=== PATIENT | female | born 1940 | race Caucasian/White ===

== ENCOUNTER 2017-01-20 16:32 | Emergency (ER) | payer OTHER, MEDICARE ==
--- NOTE | 2017-01-20 18:29 | DIAGNOSTIC IMAGING REPORT ---
PROCEDURE: XR CERVICAL SPINE 2 OR 3 VIEW INDICATION: NECK TRAUMA/INJURY TECHNIQUE: Three views. COMPARISON: None. FINDINGS: Normal alignment without fracture. Mild to moderate C5-6 and C6-7 degenerative changes. Straightening of the cervical spine. Soft tissue calcifications posterior to the C5 and C6 spinous processes consistent with old post-traumatic changes. Odontoid, lateral masses of C1 and prevertebral soft tissues are normal. Left carotid calcific atherosclerosis. IMPRESSION: 1. Straightening of the cervical spine suggestive of muscular spasm 2. Mild to moderate degenerative changes 3. Left carotid calcific atherosclerosis.
--- NOTE | 2017-01-20 19:49 | DIAGNOSTIC IMAGING REPORT ---
PROCEDURE: CT HEAD WITHOUT CONTRAST INDICATION: TRAUMA/INJURY TECHNIQUE: Noncontrast axial images with sagittal and coronal reformations. COMPARISON: None. FINDINGS: Right posterior parietal scalp contusion with a subcutaneous punctate foreign body. There is mild cortical atrophy, normal ventricular system and minor white matter chronic ischemic changes. There is a 6 mm right parasagittal anterior falx density. There is no mass effect, midline shift or acute CVA. There is no fracture. Mastoids are clear. Right antral window with subchondral opacification of the right maxillary sinus. IMPRESSION: 1. Right posterior parietal scalp contusion with subcutaneous punctate foreign body 2. Right para sagittal anterior falx density suspicious for a tiny subdural hematoma versus anterior falx calcification. 3. Mild atrophy and minor white matter chronic ischemic changes 4. Right antral window with subtotal opacification of the right maxillary sinus 5. Findings discussed with Dr. Roman at 07:46 p.m., [employer] Standard Time
--- NOTE | 2017-01-20 21:06 | ED CLINICAL REPORT ---
Clinical Report - Physicians/Mid Levels [facility] [address] [place] [address] 01/20/2017 16:34 Patient: EVE VILLAFUERTE Time Seen: 16:50. Arrived- By private vehicle. Historian- patient and family. HISTORY OF PRESENT ILLNESS Chief Complaint: INJURY TO HEAD. Location of injuries- head and neck. The injury occurred just prior to arrival. Occurred at home. ( Ms Villafuerte lost her balance and fell backwards from standing. She felt slightly downhill and hit the back of her head on some rocks. She suffered no loss of consciousness. This happened just prior to arrival. She does not take anticoagulants.). The patient complains of mild pain. The patient sustained a blow to the head and complains of neck pain. No loss of consciousness or seizure. Not dazed. REVIEW OF SYSTEMS No numbness, nausea, chest pain, weakness or loss of vision. No vomiting, difficulty breathing, bladder dysfunction or fever. She sustained skin laceration. PAST HISTORY PROBLEMS: Constipation. Hemorrhoids. Dehydration. Abdominal Pain. Bartholin's Abscess. Depression. Anxiety Reaction. Hypertension. Cancer.- Bilateral Diverticulitis. Diabetes Mellitus. ADDITIONAL SURGERIES: Appendectomy. Bilat knee replacements. Colon resection. Colonoscopy. Hernia Repair. Hysterectomy. Mastectomy. x 2 Tonsillectomy. Last tetanus immunization unknown. ADDITIONAL NOTES The nursing notes have been reviewed. PHYSICAL EXAM Vital Signs: 01/20/2017 21:12 BP: 119/58. HR: 63. RR: 16. O2 saturation: 98%. Temp: 98.8 F. Pain level now: 08/08. 01/20/2017 19:31 BP: 122/54. HR: 68. RR: 16. O2 saturation: 98%. 01/20/2017 16:57 BP: 125/59. HR: 75. RR: 20. O2 saturation: 96%. Temp: 98.2 F. Pain level now: 10. Appearance: Alert. Patient in mild distress. Head: Vertex: abrasion, moderate swelling and 0.5 cm laceration of the posterior aspect of the vertex. No left mandible complaints. Eyes: Pupils equal, round and reactive to light. EOM intact. ENT: No dental injury. Pharynx normal. Neck: Neck non-tender. CVS: Heart sounds normal. Respiratory: Breath sounds normal. Chest nontender. Abdomen: Soft and nontender. No organomegaly. Back: No tenderness. ROM normal. Skin: Skin intact. Skin warm. Extremities: Normal inspection. Pelvis stable. Extremities atraumatic. Neuro: Oriented X 3. Mood/affect normal. Speech normal. No motor deficit. No sensory deficit. LABS, X-RAYS, AND EKG CT Head: (PROCEDURE: CT HEAD WITHOUT CONTRAST INDICATION: TRAUMA/INJURY TECHNIQUE: Noncontrast axial images with sagittal and coronal reformations. COMPARISON: None. FINDINGS: Right posterior parietal scalp contusion with a subcutaneous punctate foreign body. There is mild cortical atrophy, normal ventricular system and minor white matter chronic ischemic changes. There is a 6 mm right parasagittal anterior falx density. There is no mass effect, midline shift or acute CVA. There is no fracture. Mastoids are clear. Right antral window with subchondral opacification of the right maxillary sinus. IMPRESSION: 1. Right posterior parietal scalp contusion with subcutaneous punctate foreign body 2. Right para sagittal anterior falx density suspicious for a tiny subdural hematoma versus anterior falx calcification. 3. Mild atrophy and minor white matter chronic ischemic changes 4. Right antral window with subtotal opacification of the right maxillary sinus 5. Findings discussed with Dr. Roman at 07:46 p.m., [place] Standard Time Electronically Final signed by:Haris Espinosa MD 01/20/2017 7:49:33 PM Technologist: JON). The study was interpreted by the radiologist and discussed with the radiologist. PROGRESS AND PROCEDURES Laceration Repair: Location: scalp. Wound depth/shape- subcutaneous and irregular. Wound is clean. Distal neuro/vascular/tendon status normal. Local anesthesia provided using 1% lidocaine with epi and bicarb. Wound explored. The known minute scalp FB cannot be fond. Closure of superficial layer: (left open). Post-procedure: there are no complications. Tetanus immunization given. Course of Care: Mrs. Villafuerte has a minute piece of foreign material in the scalp. The scalp wound was carefully irrigated but no foreign body could be seen. She understands that at some later time a small abscess may form that immediately extruded or it maybe retained for the rest of her life without problems. Mrs. Villafuerte has a small radiodense area on the falx which I believe is almost certainly calcification rather than bleeding because of theexcellent neurologic examination. I did decide to ask the patient to return in [address] in case the radiodense area would be fun to BX expandingit could be appropriately dealt with. The patient is currently alert and oriented and quite appropriate her also do every two-hour mental status exam checks and she'll be seen in 12 hours in the ED for a repeat CT scan. CLINICAL IMPRESSION Single laceration to the scalp. Contusion to the scalp. INSTRUCTIONS (RETURN FOR REPEAT CT OF HEAD IN 12 HOURS TO MAKE SURE THAT THE RADIODENSITY ON THE FALX IS NOT A WORSENING BLEED. EVERY 2 HOUR MENTAL STATUS CHECKS. IMMEDIATE RECHECK IF LESS ALERT YOU HAVE A SMALL PIECE OF FOREIGN MATERIAL IN THE SCALP. I WAS NOT ABLE TO REMOVE IT. WE TALKED ABOUT THE LIKELY OUTCOMES.). Prescription Medications: Hydrocodone/APAP 5mg / 325mg: take 1-2 orally every 4 hours as needed for pain. Dispense fifteen (15). No refill. Follow-up: Follow up with your doctor in six days. Call for an appointment. Understanding of the discharge instructions verbalized by patient and family. (Electronically signed by Roney Roman MD 01/20/2017 23:46)
--- NOTE | 2017-01-20 21:06 | ED ORDER SUMMARY ---
..... 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 (21:21 01/20/2017)] [Electronically signed by Roney Roman MD (23:46 01/20/2017)] [Electronically locked/signed by Salvatore Stone R.N. (21:21 01/20/2017)]
--- NOTE | 2017-01-20 21:06 | ED ORDER SUMMARY ---
..... 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 (21:21 01/20/2017)] [Electronically signed by Roney Roman MD (23:46 01/20/2017)] [Electronically locked/signed by Salvatore Stone R.N. (21:21 01/20/2017)]
--- NOTE | 2017-01-20 21:06 | ED NURSING NOTES ---
Clinical Report - Nurses [facility] [address] [place] [address] 01/20/2017 16:34 Patient: EVE VILLAFUERTE TRIAGE Triage time 16:54. Acuity: LEVEL 4. Chief Complaint: FALL (Just STRANNER she fell off of a 5 gallon bucket onto the dirt/grass and hit her head on a rock, right posterior head lac. Denies LOC. She states that she just lost her balance due to bilat knee replacements and neuropathy.). SEPSIS SCREEN: Sepsis Screen. Negative (no infection suspected/documented). ABDI COMA SCORE: Abdi Coma Scale: 15- eyes open spontaneously (4); best verbal response- oriented x 4 (5); best motor response- obeys commands (6). --17:09 Tio Cisneros R.N. 16:57 01/20/17. BP: 125/59 (large adult cuff) taken on the left arm, while sitting. HR: 75. RR: 20. O2 saturation: 96% on room air. Temp: 98.2 F (oral). Pain level now: 05/08. --17:09 Tio Cisneros R.N. Weight: 97.5 kg stated. Height/Length: 65 inches Per Patient. BMI: 35.8. --17:06 Tio Cisneros R.N. Medications Atenolol Oral 50 mg, daily. HCTZ 25 mg, daily. --17:04 Tio Cisneros R.N. Amitriptyline HCl Oral. --17:04 Tio Cisneros R.N. ALPRAZolam Oral. --17:04 Tio Cisneros R.N. Colchicine Oral. --17:05 Tio Cisneros R.N. Aspirin Oral (Tablet 81 mg) 1 tablet, daily. --17:05 Tio Cisneros R.N. Allergies No Known Drug Allergy. --17:05 Tio Cisneros R.N. Tape. (Paper tape is ok) --17:05 Simbeck, Tio, R.N. Tegaderm. --17:08 Tio Cisneros R.N. History Arrived by private vehicle. Historian: patient. Accompanied by family. This occurred just prior to arrival. She has had moderate mid back pain. She has had trouble walking. (baseline). No loss of consciousness. No dizziness or neck pain. Trauma activation: Pre-hospital notification of patient arrival was not received. SOCIAL HX: Never smoker. Occasional alcohol use. No drug use. ABUSE ASSESSMENT: No report of abuse. --17:09 Tio Cisneros R.N. PROBLEMS: Constipation. Hemorrhoids. Dehydration. Abdominal Pain. Bartholin's Abscess. Depression. Anxiety Reaction. Hypertension. Cancer. Diverticulitis. --17:01 Tio Cisneros R.N. Diabetes Mellitus. --17:08 Tio Cisneros R.N. ADDITIONAL SURGERIES: Appendectomy. Bilat knee replacements. Colon resection. Colonoscopy. Hernia Repair. Hysterectomy. Mastectomy. Tonsillectomy. --17:01 Tio Cisneros R.N. Interventions ID band on patient. To treatment room. --17:09 Tio Cisneros R.N. PHYSICAL ASSESSMENT 17:13 01/20/17. To room via wheelchair. GENERAL / NEURO / PSYCH: Alert. Oriented X 4. Appears in pain. HEENT: Pupils equal, round and reactive to light. Right parietal area: subcutaneous 1.0 cm laceration with controlled bleeding. Head non-tender. EXTREMITIES: Extremities do not exhibit normal ROM. Limited ROM present in the right knee and left knee (chronic). Neuro-vascular status intact to the extremity. SKIN: Skin is warm and dry. Skin not intact. --17:15 Tio Cisneros R.N. NURSING PROGRESS NOTES Reassurance given. Two patient identifiers checked. Call light placed in reach. Side rails up x 1. Bed placed in lowest position. Brakes of bed on. Patient ready for evaluation- chart flagged. ( at the bedside). --17:15 Tio Cisneros R.N. 17:52 01/20/2017 Hydrocodone-APAP (Hydrocodone-Acetaminophen) PO 5/325 mg Tablets 2 tab given. Allergies verified, confirmed 5 rights and sedative warning given to the patient. --17:54 Tio Cisneros R.N. 17:52 01/20/2017 Zofran ODT (Ondansetron) PO Oral Disintegrating Tablets 4 mg given. Allergies verified and confirmed 5 rights. --17:54 Tio Cisneros R.N. 17:53 01/20/2017 TDAP IM 0.5 mL given. 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 Given in the right deltoid. Allergies verified and confirmed 5 rights. --17:55 Tio Cisneros R.N. Reassessment after medication administered. She is calm and resting quietly. Overall patient status is improved. GENERAL / NEURO / PSYCH: The patient reports pain that is located in the mid back. Alert. Oriented X 4. RESPIRATORY: No respiratory distress. CVS: Capillary refill less than 2 seconds. --19:33 Salvatore Stone R.N. 19:31 01/20/17. BP: 122/54. HR: 68. RR: 16. O2 saturation: 98%. --19:33 Salvatore Stone R.N. The patient is calm and resting quietly. Overall patient status is improved- she states feels better. ( Patient is waiting for CT scan result.). GENERAL / NEURO / PSYCH: The patient reports pain that is located in the mid back is still present and currently mild in severity. Alert. Oriented X 4. RESPIRATORY: No respiratory distress. CVS: Capillary refill less than 2 seconds. EXTREMITIES: Neuro-vascular status intact to the extremity. --20:47 Salvatore Stone R.N. DISPOSITION / DISCHARGE Condition at departure: improved. ( Denies headache or dizziness. Mid to low back pain still present but patient states it is a bit better.). No learning barriers present. Discharge instructions provided and reviewed with the patient. Reviewed medication(s) side effects, precautions, dosing and course information. Prescription(s) given to the patient. Reviewed referral to a primary care physician for followup. Patient verbalized understanding. Written instructions provided in [place]. The patient was discharged home and accompanied by spouse. She left the Emergency Department ambulatory and via private vehicle. Spouse driving. --21:21 Salvatore Stone R.N. 21:12 01/20/17. BP: 119/58. HR: 63. RR: 16. O2 saturation: 98%. Temp: 98.8 F (oral). Pain level now: 08/08. --21:21 Salvatore Stone R.N. Departure time: :. --21:21 Salvatore Stone R.N. Locked/Released at 01/20/2017 21:21 by Salvatore Stone R.N.
--- NOTE | 2017-01-20 23:46 | ED MAR SUMMARY ---
..... Medication Administration Record [facility] [address] [place] [address] Patient: EVE VILLAFUERTE Visit ID: [id number] 76y, F Weight: 97.5 kg Height/Length: 65 in BMI: 35.8 ALLERGIES: Tape, No Known Drug Allergy, Tegaderm Given 17:52 01/20/2017 Tio Cisneros R.N. Medication Administered: HYDROCODONE-APAP [PO] (HYDROCODONE-ACETAMINOPHEN), Dose: 2 tab 5/325 mg Tablets PO. Medication Ordered: Hydrocodone-APAP PO 5/325 mg 2 tabs (NOW). Given 17:52 01/20/2017 Tio Cisneros R.N. Medication Administered: ZOFRAN ODT [PO] (ONDANSETRON), Dose: 4 mg Oral Disintegrating Tablets PO. Medication Ordered: Zofran ODT PO 4 mg (NOW). Given 17:53 01/20/2017 Tio Cisneros R.N. Medication Administered: TDAP [IM], Dose: 0.5 mL IM. Medication Ordered: Tdap IM 0.5 mL (NOW).
--- NOTE | 2017-01-20 23:46 | ED MED RECONCILIATION SUMMARY ---
Patient: EVE VILLAFUERTE Medication Reconciliation Report [facility] VisitID: [id number] [place] [address] 76y, F Registration Date/Time: 01/20/2017 Weight: 97.5 kg Height/Length: 65 in. BMI: 35.8 ALLERGIES: No Known Drug Allergy, Tape, Tegaderm The patient's Home Medications are listed below: THE FOLLOWING MEDICATIONS NEED TO BE RECONCILED: ALPRAZolam Oral Amitriptyline HCl Oral Aspirin Oral (81 mg) 1 tablet, daily Atenolol Oral 50 mg, daily Colchicine Oral HCTZ 25 mg, daily The source(s) of the original Home Medication information: Not obtained. The following Medications were given to the patient in the Emergency Department: Hydrocodone-APAP [PO] PO 2 tab, administered: 01/20/2017 5:52:00 PM Zofran ODT [PO] PO 4 mg, administered: 01/20/2017 5:52:00 PM TDAP [IM] IM 0.5 mL, administered: 01/20/2017 5:53:00 PM The following Medications were prescribed to the patient: Hydrocodone/APAP 5mg / 325mg: take 1-2 orally every 4 hours as needed for pain. Dispense fifteen (15). No refill. -- Roney Roman MD
--- NOTE | 2017-01-20 23:46 | ED MED RECONCILIATION SUMMARY ---
Patient: EVE VILLAFUERTE Medication Reconciliation Report [facility] VisitID: [id number] [place] [address] 76y, F Registration Date/Time: 01/20/2017 Weight: 97.5 kg Height/Length: 65 in. BMI: 35.8 ALLERGIES: No Known Drug Allergy, Tape, Tegaderm The patient's Home Medications are listed below: THE FOLLOWING MEDICATIONS NEED TO BE RECONCILED: ALPRAZolam Oral Amitriptyline HCl Oral Aspirin Oral (81 mg) 1 tablet, daily Atenolol Oral 50 mg, daily Colchicine Oral HCTZ 25 mg, daily The source(s) of the original Home Medication information: Not obtained. The following Medications were given to the patient in the Emergency Department: Hydrocodone-APAP [PO] PO 2 tab, administered: 01/20/2017 5:52:00 PM Zofran ODT [PO] PO 4 mg, administered: 01/20/2017 5:52:00 PM TDAP [IM] IM 0.5 mL, administered: 01/20/2017 5:53:00 PM The following Medications were prescribed to the patient: Hydrocodone/APAP 5mg / 325mg: take 1-2 orally every 4 hours as needed for pain. Dispense fifteen (15). No refill. -- Roney Roman MD
--- NOTE | 2017-01-20 23:46 | ED MAR SUMMARY ---
..... Medication Administration Record [facility] [address] [place] [address] Patient: EVE VILLAFUERTE Visit ID: [id number] 76y, F Weight: 97.5 kg Height/Length: 65 in BMI: 35.8 ALLERGIES: Tape, No Known Drug Allergy, Tegaderm Given 17:52 01/20/2017 Tio Cisneros R.N. Medication Administered: HYDROCODONE-APAP [PO] (HYDROCODONE-ACETAMINOPHEN), Dose: 2 tab 5/325 mg Tablets PO. Medication Ordered: Hydrocodone-APAP PO 5/325 mg 2 tabs (NOW). Given 17:52 01/20/2017 Tio Cisneros R.N. Medication Administered: ZOFRAN ODT [PO] (ONDANSETRON), Dose: 4 mg Oral Disintegrating Tablets PO. Medication Ordered: Zofran ODT PO 4 mg (NOW). Given 17:53 01/20/2017 Tio Cisneros R.N. Medication Administered: TDAP [IM], Dose: 0.5 mL IM. Medication Ordered: Tdap IM 0.5 mL (NOW).
--- NOTE | 2017-01-20 23:46 | ED DISCHARGE INSTRUCTIONS ---
Patient: EVE VILLAFUERTE General Instructions [facility] VisitID: [id number] [place] [address] 76y, F Registration Date/Time: 01/20/2017 Single laceration to the scalp. Contusion to the scalp. INSTRUCTIONS (RETURN FOR REPEAT CT OF HEAD IN 12 HOURS TO MAKE SURE THAT THE RADIODENSITY ON THE FALX IS NOT A WORSENING BLEED. EVERY 2 HOUR MENTAL STATUS CHECKS. IMMEDIATE RECHECK IF LESS ALERT YOU HAVE A SMALL PIECE OF FOREIGN MATERIAL IN THE SCALP. I WAS NOT ABLE TO REMOVE IT. WE TALKED ABOUT THE LIKELY OUTCOMES.). Prescription Medications: Hydrocodone/APAP 5mg / 325mg: take 1-2 orally every 4 hours as needed for pain. Dispense fifteen (15). No refill. Follow-up: Follow up with your doctor in six days. Call for an appointment. Understanding of the discharge instructions verbalized by patient and family. ADDITIONAL INFORMATION Laceration (All Closures) Alaceration is a cut through the skin. This will usually require stitches (sutures) or shawanda if it is deep. Minor cuts may be treated with a surgical tape closure orskin glue. Home care The following guidelines will help you care for your laceration at home: Extremity, face, or trunk wounds Keep the wound clean and dry. If a bandage was applied and it becomes wet or dirty, replace it. Otherwise, leave it in place for the first 24 hours. If stitches or shawanda were used, clean the wound daily. After removing the bandage, wash the area with soap and water. Use a wet cotton swab to loosen and remove any blood or crust that forms. The doctor may prescribe an antibiotic cream or ointment to prevent infection. Do not stop taking this medication until you have finished the prescribed course or the doctor tells you to stop. The doctor may also prescribe medications for pain. Follow the doctors instructions for taking these medications. You may remove the bandage to shower as usual after the first 24 hours, but do not soak the area in water (no swimming) until the stitches or shawanda are removed. If surgical tape was used, keep the area clean and dry. If it becomes wet, blot it dry with a towel. If skin glue was used, do not scratch, rub, or pick at the adhesive film. Do not place tape directly over the film. Do not apply liquid, ointment, or creams to the wound while the film is in place. Do not clean the wound with peroxide and do not apply ointments. Avoid activities that cause heavy sweating until the film has fallen off. Protect the wound from prolonged exposure to sunlight or tanning lamps. You may shower as usual but do not soak the wound in water (no baths or swimming). The film will fall off by itself in 510 days. Scalp wounds During the first two days, you may carefully rinse your hair in the shower to remove blood, glass or dirt particles. After two days, you may shower and shampoo your hair normally. Do not soak your scalp in the tub or go swimming until the stitches or shawanda have been removed. Talk with your doctor before applying any antibiotic ointment to the wound. Mouth wounds Eat soft foods to reduce pain. If the cut is inside of your mouth, clean by rinsing after each meal and at bedtime with a mixture of equal parts water and hydrogen peroxide (do not swallow!). Or, you can use a cotton swab to directly apply hydrogen peroxide onto the cut. Mouth wounds can be painful when eating. You may use an [id number] local numbing solution for pain relief. If this is not available, you may use any numbing solution for teething babies. You may apply this directly to the sores with a cotton-tip swab or with your finger. Follow-up care Follow up with your health care provider. Most skin wounds heal within ten days. Mouth and facial wounds heal within five days. However, even with proper treatment, a wound infection may sometimes occur. Therefore, you should check the wound daily for signs of infection listed below. Stitches should be removed from the face within five days; stitches and shawanda should be removed from other parts of the body within 714 days. If dissolving stitches were used in the mouth, these will fall out or dissolve without the need for removal. If tape closures were used, remove them yourself if they have not fallen off after 7 days. Ifskin glue was used, the film will fall off by itself in 510 days. When to seek medical care Get prompt medical attention if any of these occur: Bleeding not controlled by direct pressure Signs of infection, including increasing pain in the wound, increasing wound redness or swelling, or pus coming from the wound Fever of 100.4F (38C) or higher, or as directed by your health care provider Stitches or shawanda come apart or fall out or surgical tape falls off before 7 days Wound edges re-open Scalp Contusion [W/ Wake-Up] A scalp contusion is a bruise with swelling. Sometimes there is bleeding under the skin. The swelling should start to go down within two days. Although there is no sign of a serious injury at this time, symptoms may show up later. These could be a sign of a more serious problem (bruising or bleeding in the brain). Home Care: During the next 24 hours someone must stay with you. This person should WAKE YOU EVERY TWO HOURS to check for the signs below. If you have swelling of the face or scalp, apply an ice pack (ice cubes in a plastic bag, wrapped in a towel). Do this for 20 minutes every 1-2 hours until the swelling starts to go down. You may use acetaminophen (Tylenol) or ibuprofen (Motrin, Advil) to control pain, unless another pain medicine was prescribed. [ NOTE : If you have chronic liver or kidney disease or ever had a stomach ulcer or GI bleeding, talk with your doctor before using these medicines.] For the next 24 hours: Do not take alcohol, sedatives or medicines that make you sleepy. Do not drive or operate machinery. Avoid strenuous activities. No lifting or straining. If you have had any symptoms of a concussion today (nausea, vomiting, dizziness, confusion, headache, memory loss or if you were knocked out), do not return to sports or any activity that could result in another head injury until all symptoms are gone and you have been cleared by your doctor. A second head injury before fully recovering from the first one can lead to serious brain injury. Follow Up with your doctor if symptoms are not improving after 24 hours, or as directed. [NOTE: Any X-rays or CT scans taken will be reviewed by a radiologist. You will be notified of any new findings that may affect your care.] Get Prompt Medical Attention if any of the following occur: Repeated vomiting Severe or worsening headache or dizziness Unusual drowsiness, or unable to awaken as usual Confusion or change in behavior or speech, memory loss, blurred vision Convulsion (seizure) Increasing scalp or face swelling Redness, warmth or pus from the swollen area Fluid drainage or bleeding from the nose or ears Fever of 100.4F(38C) or higher, or as directed by your healthcare provider Hydrocodone Bitartrate, Acetaminophen Oral tablet What is this medicine? ACETAMINOPHEN; HYDROCODONE (a set a LUIS emil fen; maribel droe KOE done) is a pain reliever. It is used to treat mild to moderate pain. How should I use this medicine? Take this medicine by mouth. Swallow it with a full glass of water. Follow the directions on the prescription label. If the medicine upsets your stomach, take the medicine with food or milk. Do not take more than you are told to take. Talk to your parole director regarding the use of this medicine in children. This medicine is not approved for use in children. What side effects may I notice from receiving this medicine? Side effects that you should report to your doctor or health health care administrator as soon as possible: allergic reactions like skin rash, itching or hives, swelling of the face, lips, or tongue breathing problems confusion feeling faint or lightheaded, falls stomach pain yellowing of the eyes or skin Side effects that usually do not require medical attention (report to your doctor or health health care administrator if they continue or are bothersome): nausea, vomiting stomach upset What may interact with this medicine? alcohol antihistamines isoniazid medicines for depression, anxiety, or psychotic disturbances medicines for sleep muscle relaxants naltrexone narcotic medicines (opiates) for pain phenobarbital ritonavir tramadol What if I miss a dose? If you miss a dose, take it as soon as you can. If it is almost time for your next dose, take only that dose. Do not take double or extra doses. Where should I keep my medicine? Keep out of the reach of children. This medicine can be abused. Keep your medicine in a safe place to protect it from theft. Do not share this medicine with anyone. Selling or giving away this medicine is dangerous and against the law. Store at room temperature between 15 and 30 degrees C (59 and 86 degrees F). Protect from light. Keep container tightly closed. Throw away any unused medicine after the expiration date. Discard unused medicine and used packaging carefully. Pets and children can be harmed if they find used or lost packages. What should I tell my health care provider before I take this medicine? They need to know if you have any of these conditions: brain tumor Crohn's disease, inflammatory bowel disease, or ulcerative colitis drink more than 3 alcohol-containing drinks per day drug abuse or addiction head injury heart or circulation problems kidney disease or problems going to the bathroom liver disease lung disease, asthma, or breathing problems an unusual or allergic reaction to acetaminophen, hydrocodone, other opioid analgesics, other medicines, foods, dyes, or preservatives or trying to get breast-feeding What should I watch for while using this medicine? Tell your doctor or health health care administrator if your pain does not go away, if it gets worse, or if you have new or a different type of pain. You may develop tolerance to the medicine. Tolerance means that you will need a higher dose of the medicine for pain relief. Tolerance is normal and is expected if you take the medicine for a long time. Do not suddenly stop taking your medicine because you may develop a severe reaction. Your body becomes used to the medicine. This does NOT mean you are addicted. Addiction is a behavior related to getting and using a drug for a non-medical reason. If you have pain, you have a medical reason to take pain medicine. Your doctor will tell you how much medicine to take. If your doctor wants you to stop the medicine, the dose will be slowly lowered over time to avoid any side effects. You may get drowsy or dizzy when you first start taking the medicine or change doses. Do not drive, use machinery, or do anything that may be dangerous until you know how the medicine affects you. Stand or sit up slowly. There are different types of narcotic medicines (opiates) for pain. If you take more than one type at the same time, you may have more side effects. Give your health care provider a list of all medicines you use. Your doctor will tell you how much medicine to take. Do not take more medicine than directed. Call emergency for help if you have problems breathing. The medicine will cause constipation. Try to have a bowel movement at least every 2 to 3 days. If you do not have a bowel movement for 3 days, call your doctor or health health care administrator. Too much acetaminophen can be very dangerous. Do not take Tylenol (acetaminophen) or medicines that contain acetaminophen with this medicine. Many non-prescription medicines contain acetaminophen. Always read the labels carefully. You have been given the following additional information: Laceration, All Scalp Contusion With Wake Up Hydrocodone Bitartrate, Acetaminophen Oral tablet (Electronically signed by Roney Roman MD 01/20/2017 23:46)
== END 2017-01-20 21:21 | disposition home or self-care (01) ==
LOC: ED SRH 16:32
DX: S01.01XA Laceration without foreign body of scalp, initial encounter (principal); W01.118A Fall on same level from slipping, tripping and stumbling with subsequent striking against other sharp object, initial encounter; Y93.9 Activity, unspecified; Y99.9 Unspecified external cause status; Y92.007 Garden or yard of unspecified non-institutional (private) residence as the place of occurrence of the external cause; E11.9 Type 2 diabetes mellitus without complications; I10 Essential (primary) hypertension; Z96.653 Presence of artificial knee joint, bilateral; Z23 Encounter for immunization

== ENCOUNTER 2017-01-21 09:55 | Emergency (ER) | payer OTHER ==
--- NOTE | 2017-01-21 12:43 | DIAGNOSTIC IMAGING REPORT ---
PROCEDURE: CT HEAD WITHOUT CONTRAST INDICATION: TRAUMA/INJURY TECHNIQUE: Axial CT images were acquired through the head. Coronal and sagittal reformations were created. COMPARISON: None. FINDINGS: Mild interval decrease in right posterior parietal contusion and removal of foreign body. Stable appearance to right frontal parafalcine hyperdensity measuring 6 x 8 x 5 mm. No new acute hemorrhage, mass or mass effect. Normal monaco-white matter differentiation, ventricular system, and basal cisterns. Mild cerebral cortical atrophy. Partial opacification of the right maxillary sinus. The other sinuses are aerated. No fractures. IMPRESSION: 1. Decreased right posterior parietal soft tissue injury. 2. Stable hyperdensity along the right anterior falx. 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 Stabilized tiny subdural hematoma is possible. 3. No evidence of new hemorrhage. 4. Discussed with Dr. Gonzales at [address] scans at this facility use dose modulation, iterative reconstruction, and/or weight-based dosing when appropriate to reduce radiation dose to as low as reasonably achievable.
--- NOTE | 2017-01-21 12:43 | DIAGNOSTIC IMAGING REPORT ---
PROCEDURE: CT HEAD WITHOUT CONTRAST INDICATION: TRAUMA/INJURY TECHNIQUE: Axial CT images were acquired through the head. Coronal and sagittal reformations were created. COMPARISON: None. FINDINGS: Mild interval decrease in right posterior parietal contusion and removal of foreign body. Stable appearance to right frontal parafalcine hyperdensity measuring 6 x 8 x 5 mm. No new acute hemorrhage, mass or mass effect. Normal monaco-white matter differentiation, ventricular system, and basal cisterns. Mild cerebral cortical atrophy. Partial opacification of the right maxillary sinus. The other sinuses are aerated. No fractures. IMPRESSION: 1. Decreased right posterior parietal soft tissue injury. 2. Stable hyperdensity along the right anterior falx. 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 Stabilized tiny subdural hematoma is possible. 3. No evidence of new hemorrhage. 4. Discussed with Dr. Gonzales at [address] scans at this facility use dose modulation, iterative reconstruction, and/or weight-based dosing when appropriate to reduce radiation dose to as low as reasonably achievable.
--- NOTE | 2017-01-21 13:16 | ED CLINICAL REPORT ---
Clinical Report - Physicians/Mid Levels [facility] [address] [place] [address] 01/21/2017 9:56 Patient: EVE VILLAFUERTE Time Seen: 1040. Arrived- By private vehicle. Historian- patient. HISTORY OF PRESENT ILLNESS Chief Complaint: INJURY TO HEAD. Location of injuries- (head). The injury occurred yesterday. Occurred at home. Fell. The patient complains of mild pain. The patient sustained a blow to the head. No neck pain, loss of consciousness or seizure. Not dazed. REVIEW OF SYSTEMS All systems otherwise negative, except as recorded above. PAST HISTORY See nurses notes. Tetanus immunization status is up-to-date. Medications: ALPRAZolam Oral. Amitriptyline HCl Oral. Aspirin Oral (Tablet 81 mg) 1 tablet, daily. Atenolol Oral 50 mg, daily. Colchicine Oral. HCTZ 25 mg, daily. Allergies: No Known Drug Allergy. Tape. (Paper tape is ok) Tegaderm. PHYSICAL EXAM Appearance: Alert. No acute distress. Head: No Lambert's sign or raccoon eyes. Eyes: Pupils equal, round and reactive to light. Pupillary exam: Right pupil 3mm, round and reactive to light directly and consensually and with accommodation. Left pupil: 3mm, round and reactive to light directly and consensually and with accommodation. EOM intact. ENT: No dental injury. No hemotympanum. Pharynx normal. Neck: No decreased ROM or muscle spasm in the neck. No pain with movement of head/neck. Painless ROM. Neck non-tender. No vertebral tenderness. CVS: Heart sounds normal. Pulses normal. Respiratory: Breath sounds normal. Chest nontender. Abdomen: Soft and nontender. No organomegaly. Back: No tenderness. ROM normal. Skin: Skin intact. Skin warm and dry. Normal skin color. Normal skin turgor. Extremities: Normal inspection. Pelvis stable. Extremities atraumatic. Neuro: Abdi Coma Scale: 15- eyes open spontaneously (4); best verbal response- oriented x 3 (5); best motor response- obeys commands (6). Oriented X 3. Mood/affect normal. Speech normal. No motor deficit. No sensory deficit. LABS, X-RAYS, AND EKG CT Head: (PROCEDURE: CT HEAD WITHOUT CONTRAST INDICATION: TRAUMA/INJURY TECHNIQUE: Axial CT images were acquired through the head. Coronal and sagittal reformations were created. COMPARISON: None. FINDINGS: Mild interval decrease in right posterior parietal contusion and removal of foreign body. Stable appearance to right frontal parafalcine hyperdensity measuring 6 x 8 x 5 mm. No new acute hemorrhage, mass or mass effect. Normal monaco-white matter differentiation, ventricular system, and basal cisterns. Mild cerebral cortical atrophy. Partial opacification of the right maxillary sinus. The other sinuses are aerated. No fractures. IMPRESSION: 1. Decreased right posterior parietal soft tissue injury. 2. Stable hyperdensity along the right anterior falx. 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 Stabilized tiny subdural hematoma is possible. 3. No evidence of new hemorrhage.). PROGRESS AND PROCEDURES Course of Care: the patient is a 76-year-old female presenting for evaluation for head injury. Patient was told to return to the emergency department for possible head bleed found on her CT scan yesterday. Patient states he she's been doing well since then. Patient has no new problems with memory or with any functioning. patient reports that her pain is well-controlled at this time and does not want anything for it. Patient's CT scan was pending and during that time requested pain medication. Pain medication as been provided. The patient's workup was remarkable for the findings above. Because the patient is stable appearance of her lesion, do not feel patient needs be admitted to the hospital require further emergency department workup/evaluation. Had a discussion with the patient in regards to the possibilities of the abnormality found on her CT scan. Return precautions in regards to possible subdural bleed was provided as well as explanation of her workup here in the emergency Department impossibilities from her CT scan. Also discussed the patient general return precautions as well as follow-up, home care, and diagnosis. All questions have been answered. The patient expressed understanding of these instructions and was agreeable to them. Because of the patient's overall normal neurological examination and stable imaging at this time, do not feel patient needs be admitted.6. CLINICAL IMPRESSION 01/21/2017 10:03 BP: 126/49. HR: 73. RR: 18. O2 saturation: 96%. Temp: 97.3 F. Blood pressure normal. Oxygen saturation normal. Closed head injury. (subsequent encounter). INSTRUCTIONS Warnings: GENERAL WARNINGS: Return or contact your physician immediately if your condition worsens or changes unexpectedly, if not improving as expected, or if other problems arise. Specifically return if pain, vomiting, bleeding, breathing difficulty or fever. Your Current Medications: CONTINUE TAKING THE FOLLOWING MEDICATIONS: ALPRAZolam Oral. Amitriptyline HCl Oral. Aspirin Oral : Tablet 81 mg, 1 tablet daily. Atenolol Oral : 50 mg daily. Colchicine Oral. HCTZ* : 25 mg daily. Follow-up: Return to the emergency department as needed. Follow up with your doctor in three days. Reason for referral: recheck today's concerns. Summary of care provided to patient via paper. Screening today revealed the patient's blood pressure to be in the normal range. The patient should follow up with a primary care provider for blood pressure management. Understanding of the discharge instructions verbalized by patient. (Electronically signed by Jeff Gonzales Dr. 01/21/2017 13:40)
--- NOTE | 2017-01-21 13:16 | ED ORDER SUMMARY ---
..... Patient: EVE VILLAFUERTE OrderSheet Located Within [facility] VisitID: [id number] [place] [address] 76y, F Registration Date/Time: 01/21/2017 ORDER SHEET Weight: 97.5 kg (stated) Allergies: No Known Drug Allergy, Tape, Tegaderm GENERAL ORDERS: CT Head wo Cont Urgent (10:40 01/21/2017 Brandin Kauffman) (Ack 10:42 Nabila) (13:32 LSjasonivan R.N.) MEDICATION ORDERS: Hydrocodone-APAP PO 10/650 mg (NOW, HIGH ALERT MEDICATION) (12:15 01/21/2017 Brandin Kauffman) (12:17 LWhalen R.N.) IV FLUIDS: ORDER SHEET NOTES: [Electronically signed by Chiquita Tabor R.N. (13:34 01/21/2017)] [Electronically signed by Jeff Gonzales Dr. (13:40 01/21/2017)] [Electronically locked/signed by Chiquita Tabor R.N. (13:34 01/21/2017)]
--- NOTE | 2017-01-21 13:16 | ED ORDER SUMMARY ---
..... Patient: EVE VILLAFUERTE OrderSheet VisitID: [id number] [place] [address] 76y, F Registration Date/Time: 01/21/2017 ORDER SHEET Weight: 97.5 kg (stated) Allergies: No Known Drug Allergy, Tape, Tegaderm GENERAL ORDERS: CT Head wo Cont Urgent (10:40 01/21/2017 Brandin Kauffman) (Ack 10:42 Nabila) (13:32 LSjasonivan R.N.) MEDICATION ORDERS: Hydrocodone-APAP PO 10/650 mg (NOW, HIGH ALERT MEDICATION) (12:15 01/21/2017 Brandin Kauffman) (12:17 LWhalen R.N.) IV FLUIDS: ORDER SHEET NOTES: [Electronically signed by Chiquita Tabor R.N. (13:34 01/21/2017)] [Electronically signed by Jeff Gonzales Dr. (13:40 01/21/2017)] [Electronically locked/signed by Chiquita Tabor R.N. (13:34 01/21/2017)]
--- NOTE | 2017-01-21 13:16 | ED NURSING NOTES ---
Clinical Report - Nurses [facility] [address] [place] [address] 01/21/2017 9:56 Patient: EVE VILLAFUERTE TRIAGE Triage time 10:Jan 21 2017. Acuity: LEVEL 3. Chief Complaint: RECHECK OF ILLNESS STATUS. OLIVE COMA SCORE: [place] Coma Scale: 15- eyes open spontaneously (4); best verbal response- oriented x 4 (5); best motor response- obeys commands (6). --10:07 Harinder Benites R.N. 10:03 01/21/17. BP: 126/49. HR: 73. RR: 18. O2 saturation: 96%. Temp: 97.3 F. Pain level now 01/06. --10:07 Harinder Benites R.N. Weight: 97.5 kg stated. Height/Length: 65 inches Per Patient. BMI: 35.8. --10:05 Harinder Benites R.N. Medications ALPRAZolam Oral. Amitriptyline HCl Oral. Aspirin Oral (Tablet 81 mg) 1 tablet, daily. Atenolol Oral 50 mg, daily. Colchicine Oral. HCTZ 25 mg, daily. --10:05 Harinder Benites R.N. Allergies No Known Drug Allergy. Tape. (Paper tape is ok) Tegaderm. --10:05 Harinder Benites R.N. History Arrived by private vehicle. Historian: patient. Accompanied by family. Location: (back of her head). She has experienced pain. Previous treatment: Previously seen in this ED yesterday. ( Needs a repeat CT scan of head per ). PAST MEDICAL HX: Tetanus status: up-to-date. Immunizations: up-to-date. The patient is post-menopausal. SOCIAL HX: Never smoker. Occasional alcohol use; consumes one glass of wine. No drug use. SELF HARM ASSESSMENT: A self harm assessment was performed. The patient answered "no" to the question "Have you recently felt down, depressed, or hopeless?" and "Do you have thoughts of harming or killing yourself?". FALL RISK ASSESSMENT: Fall risk assessment completed. No fall risk identified. NUTRITIONAL RISK ASSESSMENT: The nutritional risk assessment revealed no deficiencies. FUNCTIONAL ASSESSMENT: Functional assessment: no impairments noted. LEARNING NEEDS ASSESSMENT: The learning needs assessment revealed no barriers. ABUSE ASSESSMENT: Abuse assessment: (yes) The patient was asked "Do you feel safe in your home?". SKIN INTEGRITY ASSESSMENT: Skin integrity risk assessment completed. No skin integrity risk identified. --10:07 Harinder Benites R.N. PROBLEMS: Contusion. Laceration. Diabetes Mellitus. Constipation. Hemorrhoids. Immunizations. Abnormal Test. Dehydration. Abdominal Pain. Bartholin's Abscess. Depression. Anxiety Reaction. Hypertension. Cancer. Diverticulitis. --10: Harinder Benites R.N. Gastritis [RuleOut]. --10: Harinder Benites R.N. ADDITIONAL SURGERIES: Appendectomy. Bilat knee replacements. Colon resection. Colonoscopy. Hernia Repair. Hysterectomy. Mastectomy. Tonsillectomy. --10: Harinder Benites R.N. Interventions ID and allergy band on patient. --10:07 Harinder Benites R.N. PHYSICAL ASSESSMENT Ambulatory to room. GENERAL / NEURO / PSYCH: Alert. Oriented X 4. Patient's nutrition appears within normal limits. Appears in pain. EXTREMITIES: Extremity pulses are within normal limits. Capillary refill is less than 2 seconds in the extremities. Sensation intact in extremities. ROM of extremities within normal limits. SKIN: Skin is warm and dry. Healing wound. Tenderness. Erythema. ( Abrasion on back of head.). --10:09 Harinder Benites R.N. NURSING PROGRESS NOTES The initial plan of care for this patient includes an assessment with efforts to address patient positioning, appropriate ambient lighting and comfortable environmental temperature. Patient gowned. Reassurance given. Call light placed in reach. Side rails up x 1. Bed placed in lowest position. Brakes of bed on. --10: Harinder Benites R.N. 12:17 01/21/2017 Hydrocodone-APAP (Hydrocodone-Acetaminophen) PO 5/325 mg Tablets 2 tab given. Allergies verified, confirmed 5 rights and sedative warning given to the patient and patient's family. --12:17 Harinder Benites R.N. 12:45 01/21/17. ( Checked on pt, she doesn't need anything at this time.). --12:45 Chiquita Tabor R.N. DISPOSITION / DISCHARGE Departure time: 13:28. Condition at departure: improved. No learning barriers present. Discharge instructions provided and reviewed with the patient and spouse. Reviewed warnings. Reviewed referral to family practice for followup and testing (or come back to the Emergency Dept.). Verbalized understanding. Written instructions provided. The patient was discharged home and accompanied by spouse. She left the Emergency Department ambulatory and via private vehicle. Spouse driving. --13:34 Chiquita Tabor R.N. 13:32 01/21/17. BP: 110/51. HR: 65. RR: 18. O2 saturation: 98% on room air. Temp: deferred. --13:34 Chiquita Tabor R.N. Locked/Released at 01/21/2017 13:34 by Chiquita Tabor R.N.
--- NOTE | 2017-01-21 13:41 | ED MED RECONCILIATION SUMMARY ---
Patient: EVE VILLAFUERTE Medication Reconciliation Report [facility] VisitID: [id number] [address] [place] [address] 76y, F Registration Date/Time: 01/21/2017 Weight: 97.5 kg Height/Length: 65 in. BMI: 35.8 ALLERGIES: No Known Drug Allergy, Tape, Tegaderm The patient's Home Medications are listed below: CONTINUE TAKING THE FOLLOWING MEDICATIONS: ALPRAZolam Oral Amitriptyline HCl Oral Aspirin Oral (81 mg) 1 tablet, daily Atenolol Oral 50 mg, daily Colchicine Oral HCTZ 25 mg, daily The source(s) of the original Home Medication information: Not obtained. The following Medications were given to the patient in the Emergency Department: Hydrocodone-APAP [PO] PO 2 tab, administered: 01/21/2017 12:17:00 PM The following Medications were prescribed to the patient: None.
--- NOTE | 2017-01-21 13:41 | ED MAR SUMMARY ---
..... Medication Administration Record [facility] [address] [place] [address] Patient: EVE VILLAFUERTE Visit ID: [id number] 76y, F Weight: 97.5 kg Height/Length: 65 in BMI: 35.8 ALLERGIES: No Known Drug Allergy, Tape, Tegaderm Given 12:17 01/21/2017 Harinder Benites R.N. Medication Administered: HYDROCODONE-APAP [PO] (HYDROCODONE-ACETAMINOPHEN), Dose: 2 tab 5/325 mg Tablets PO. Medication Ordered: Hydrocodone-APAP PO 10/650 mg (NOW, HIGH ALERT MEDICATION).
--- NOTE | 2017-01-21 13:41 | ED DISCHARGE INSTRUCTIONS ---
Patient: EVE VILLAFUERTE General Instructions [facility] VisitID: [id number] [place] [address] 76y, F Registration Date/Time: 01/21/2017 01/21/2017 10:03 BP: 126/49. HR: 73. RR: 18. O2 saturation: 96%. Temp: 97.3 F. Blood pressure normal. Oxygen saturation normal. Closed head injury. (subsequent encounter). INSTRUCTIONS Warnings: GENERAL WARNINGS: Return or contact your physician immediately if your condition worsens or changes unexpectedly, if not improving as expected, or if other problems arise. Specifically return if pain, vomiting, bleeding, breathing difficulty or fever. Your Current Medications: CONTINUE TAKING THE FOLLOWING MEDICATIONS: ALPRAZolam Oral. Amitriptyline HCl Oral. Aspirin Oral : Tablet 81 mg, 1 tablet daily. Atenolol Oral : 50 mg daily. Colchicine Oral. HCTZ* : 25 mg daily. Follow-up: Return to the emergency department as needed. Follow up with your doctor in three days. Reason for referral: recheck today's concerns. Summary of care provided to patient via paper. Screening today revealed the patient's blood pressure to be in the normal range. The patient should follow up with a primary care provider for blood pressure management. Understanding of the discharge instructions verbalized by patient. ADDITIONAL INFORMATION Head Injury, No Wake-Up (Adult) You have had a head injury. It does not appear serious at this time. Symptoms of a more serious problem (concussion, bruising, or bleeding in the brain) may appear later. Therefore, watch for the WARNING SIGNS listed below. Home Care: Your healthcare provider will tell you whether its okay to drive. If so, you can drive yourself home. For the next day or so, be careful when driving or using heavy machinery until you are sure you have no delayed symptoms. During the next 24 hours someone must stay with you to check for the signs below. It is not necessary to stay awake or be awakened during the night. If you have swelling of the face or scalp, apply an ice pack (ice cubes in a plastic bag, wrapped in a towel) for 20 minutes. Do this every 1-2 hours until the swelling starts to go down. Do not use aspirin or ibuprofen (Motrin, Advil) after a head injury.You may use acetaminophen (Tylenol)to control pain, unless another pain medicine was prescribed. [NOTE: If you have chronic liver or kidney disease or ever had a stomach ulcer or GI bleeding, talk with your doctor before using these medicines.] For the next 24 hours: Do not take alcohol, sedatives or medicines that make you sleepy. Avoid strenuous activities. No lifting or straining. If you have had any symptoms of a concussion today (nausea, vomiting, dizziness, confusion, headache, memory loss or if you were knocked out), do not return to sports or any activity that could result in another head injury until all symptoms are gone and you have been cleared by your doctor. A second head injury before fully recovering from the first one can lead to serious brain injury. Follow Up with your doctor if symptoms are not improving after 24 hours, or as directed. [NOTE: A radiologist will review any X-rays or CT scans that were taken. We will notify you of any new findings that may affect your care.] Get Prompt Medical Attention if any of the followingWARNING SIGNS occur: Repeated vomiting Severe or worsening headache or dizziness Unusual drowsiness, or unable to awaken as usual Confusion or change in behavior or speech, memory loss, blurred vision Convulsion (seizure) Increasing scalp or face swelling Redness, warmth or pus from the swollen area Fluid drainage or bleeding from the nose or ears You have been given the following additional information: HEAD INJURY, No Wake-Up (Adult) (Electronically signed by Jeff Gonzales Dr. 01/21/2017 13:40)
--- NOTE | 2017-01-21 13:41 | ED MAR SUMMARY ---
..... Medication Administration Record [facility] [address] [place] [address] Patient: EVE VILLAFUERTE Visit ID: [id number] 76y, F Weight: 97.5 kg Height/Length: 65 in BMI: 35.8 ALLERGIES: No Known Drug Allergy, Tape, Tegaderm Given 12:17 01/21/2017 Harinder Benites R.N. Medication Administered: HYDROCODONE-APAP [PO] (HYDROCODONE-ACETAMINOPHEN), Dose: 2 tab 5/325 mg Tablets PO. Medication Ordered: Hydrocodone-APAP PO 10/650 mg (NOW, HIGH ALERT MEDICATION).
--- NOTE | 2017-01-21 13:41 | ED MED RECONCILIATION SUMMARY ---
Patient: EVE VILLAFUERTE Medication Reconciliation Report [facility] VisitID: [id number] [address] [place] [address] 76y, F Registration Date/Time: 01/21/2017 Weight: 97.5 kg Height/Length: 65 in. BMI: 35.8 ALLERGIES: No Known Drug Allergy, Tape, Tegaderm The patient's Home Medications are listed below: CONTINUE TAKING THE FOLLOWING MEDICATIONS: ALPRAZolam Oral Amitriptyline HCl Oral Aspirin Oral (81 mg) 1 tablet, daily Atenolol Oral 50 mg, daily Colchicine Oral HCTZ 25 mg, daily The source(s) of the original Home Medication information: Not obtained. The following Medications were given to the patient in the Emergency Department: Hydrocodone-APAP [PO] PO 2 tab, administered: 01/21/2017 12:17:00 PM The following Medications were prescribed to the patient: None.
== END 2017-01-21 13:28 | disposition home or self-care (01) ==
LOC: ED SRH 09:55
DX: S09.90XD Unspecified injury of head, subsequent encounter (principal); W20.8XXD Other cause of strike by thrown, projected or falling object, subsequent encounter; E11.9 Type 2 diabetes mellitus without complications; I10 Essential (primary) hypertension; Z79.82 Long term (current) use of aspirin; Z79.899 Other long term (current) drug therapy; Z91.09 Other allergy status, other than to drugs and biological substances

== ENCOUNTER → 2017-01-24 | Outpatient (CLI) | payer OTHER ==
--- NOTE | 2017-01-24 13:40 | DIAGNOSTIC IMAGING REPORT ---
PROCEDURE: CT HEAD WITHOUT CONTRAST INDICATION: F/U HEAD INJURY, R/O SUBDURAL HEMATOMA TECHNIQUE: Axial CT images were acquired through the head. Coronal and sagittal reformations were created. COMPARISON: 01/21/2017 and 01/20/2017 FINDINGS: Slight interval decrease in size and density of right parafalcine subdural based hyperdensity. No evidence of new hemorrhage. Stable, small hypodensity in the anterior limb of the right internal capsule. Otherwise nonspecific minor periventricular white matter hypodensity. Benign right basal ganglia calcification. Normal ventricular system. Mild calcific atherosclerosis. Mild right maxillary sinus disease, chronic. Minor residual right parietal soft tissue thickening. Lobulated inner table contour of the anterior calvarium. IMPRESSION: 1. Slight to decreased size and density of right parafalcine subdural based lesion, probably resolving tiny subdural hematoma, less likely meningioma. 2. Small right anterior limb internal capsule white matter hypodensity, chronic. Correlate clinically. 3. Findings discussed with Yosef Perrin at [address] scans at this facility use dose modulation, iterative reconstruction, and/or weight-based dosing when appropriate to reduce radiation dose to as low as reasonably achievable.
== END ==
LOC: CT SRH 12:27
DX: S09.90XA Unspecified injury of head, initial encounter (principal)